=== PATIENT | male | born 1990 | race Caucasian/White ===

== ENCOUNTER → 2017-04-19 10:26 | Emergency (ER) | payer BC, OTHER ==
[2017-04-19 11:36] LABS: Hematocrit 44 % (42-52); Hemoglobin 15.4 g/dl (14.0-18.0); Mean Corpuscular HGB Conc 35 g/dl (31-36); Mean Corpuscular Hemoglobin 30 pg (27-31); Mean Corpuscular Volume 86 fL (80-94); Mean Platelet Volume 8 um3 (7.4-10.4); Red Blood Count 5.13 10^6/ul (4.0-5.4); Red Cell Distribution Width 13 % (10.5-15); White Blood Count 5.2 10^3/ul (3.5-10.8)
--- NOTE | 2017-04-19 11:49 | RAD ---
HISTORY: Right calf cellulitis, right lower extremity swelling COMPARISONS: None relevant TECHNIQUE: Multiple transverse and longitudinal ultrasound images were obtained of the right lower extremity from the level of the common femoral vein inferiorly through to the infrapopliteal veins using grayscale, color Doppler, and spectral Doppler imaging with and without compression and with augmentation. Comparison images were obtained of the contralateral common femoral vein. FINDINGS: VEINS: The venous system of the right lower extremity is compressible throughout its course, with normal flow on color Doppler imaging and normal response to augmentation on spectral Doppler imaging. SOFT TISSUES: Unremarkable. OTHER FINDINGS: None. IMPRESSION: NO RIGHT LOWER EXTREMITY DEEP VEIN THROMBOSIS
[2017-04-19 11:51] LABS: Albumin 4.1 g/dL (3.2-5.2); BUN/Creatinine Ratio 20.6 (8-20); C Reactive Protein 2.08 mg/L (< 5.00); Calcium 9.1 mg/dL (8.6-10.3); EGFR African American 179.9 (>60); EGFR Non-African American 139.9 (>60); Globulin 2.8 g/dL (2-4); Potassium 3.9 mmol/L (3.5-5.0); Total Bilirubin 0.4 mg/dL (0.2-1.0); Total Protein 6.9 g/dL (6.4-8.9)
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
[2017-04-19 12:36] VITALS: BP 156/69
== END | disposition home or self-care (01) ==
LOC: ED 10:26
DX: L03.115 Cellulitis of right lower limb (principal); R60.0 Localized edema
CPT/HCPCS: 36415; 80053; 83605; 83880; 85025; 85610; 85730; 86140; 99282

== ENCOUNTER 2018-08-25 08:12 | Emergency (ER) | payer OTHER ==
[2018-08-25 08:45] VITALS: BP 138/82
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
== END 2018-08-25 09:30 | disposition home or self-care (01) ==
LOC: UCCORT 08:12
DX: S70.01XA Contusion of right hip, initial encounter (principal); V59.3XXA Occupant (driver) (passenger) of pick-up truck or van injured in unspecified nontraffic accident, initial encounter; Y92.410 Unspecified street and highway as the place of occurrence of the external cause; G47.30 Sleep apnea, unspecified; F17.290 Nicotine dependence, other tobacco product, uncomplicated; I10 Essential (primary) hypertension
CPT/HCPCS: 99212; G0463

== ENCOUNTER 2018-11-24 18:29 | Emergency (ER) | payer SELFPAY ==
[2018-11-24 19:05] VITALS: BP 160/77
[2018-11-24] MEDS ORDERED: Tetracaine 0.5% OPTH.SOL 4 ML* 1 DROP BTL BOTH EYES ONE (19:12)
[2018-11-24] MEDS ORDERED: Fluorescein Sodium TOPICAL* 1 MG TEST STRIP OPHTHALMIC ONE (19:12)
--- NOTE | 2018-11-24 19:32 | UC ---
General HPI - HPI Summary HPI Summary: REDNESS AND IRRITATION TO BOTH EYES SINCE THIS AFTERNOON WITH YELLOW DRAINAGE. THE DRAINAGE IS MAKING HIS VISION BLURRY. IT BEGAN AFTER WORKING IN [employer]. NO CONTACT USE OR CORRECTIVE GLASSES. HE HAS TRIED FLUSHING HIS EYES, RUBBING HIS EYES AND APPLYING VISINE ALL WITH LITTLE RELIEF. PT ALSO FLUSHED EACH EYE WITH A FRIENDS LEFT OVER VIGAMOX. NO URI, BURNETT OR FEVER. - History of Current Complaint Chief Complaint: UCEye Stated Complaint: VISION ISSUE Time Seen by Provider: 11/24/18 19:07 Hx Obtained From: Patient Timing: Constant Pain Intensity: 0 - Allergy/Home Medications Allergies/Adverse Reactions: Allergies Allergy/AdvReac Type Severity Reaction Status Date / Time No Known Allergies Allergy Verified 11/24/18 18:49 Home Medications: Home Medications Bp Med 5 mg PO DAILY 11/24/18 [History] Diet Med 1 dose PO SEE INSTRUCTIONS 11/24/18 [History] Protein Supplement [Procel] 1 each PO DAILY 11/24/18 [History Confirmed 11/24/18 ] hydroCHLOROthiazide [Hydrochlorothiazide] 12.5 mg PO DAILY 11/24/18 [History Confirmed 11/24/18] PMH/Surg Hx/FS Hx/Imm Hx Cardiovascular History: Hypertension - Surgical History Surgical History: Yes Surgery Procedure, Year, and Place: tonsillectomy. b/l carpal tunnel - Family History Known Family History: Positive: Hypertension Negative: Cardiac Disease, Diabetes - Social History Occupation: Employed Full-time Alcohol Use: Weekly Alcohol Amount: "couple times a week ... ten [drinks]" total Substance Use Type: None Smoking Status (MU): Light Every Day Tobacco Smoker Type: Smokeless Tobacco Amount Used/How Often: 1 1/2 cans per day Length of Time of Smoking/Using Tobacco: Since Age 15 Have You Smoked in the Last Year: Yes Household Exposure Type: Cigarettes Review of Systems All Other Systems Reviewed And Are Negative: Yes Eyes: Positive: Blurred Vision - FROM DRAINAGE, Drainage, Eye Redness. Negative : Diplopia, Photophobia Physical Exam Triage Information Reviewed: Yes Appearance: Well-Appearing Vital Signs: Initial Vital Signs Temp 99.5 F 11/24/18 18:57 Pulse 94 11/24/18 18:57 Resp 28 11/24/18 18:57 BP 160/77 11/24/18 18:57 Pulse Ox 99 11/24/18 18:57 Vital Signs Reviewed: Yes Eyes: Positive: Other: - uncorrected vision od/os 20/30, ou 20/25. No auricular adenoapthy. No periorbital edema or cellulitis. PERRL, EOMI, AC's clear. Conjunctiva injected x2 and yellow exudates in each eye. Lids everted and no FB' s. Tetracaine drop OU. Stained x 2 and no uptake. Both eyes flushed with sterile NaCl. pt notes vision clear after exudates flushed from eyes. ENT: Positive: Pharynx normal, TMs normal. Negative: Nasal congestion, Nasal drainage Neck: Positive: Supple Respiratory: Positive: Normal breath sounds Cardiovascular: Positive: RRR Musculoskeletal: Positive: ROM Intact Neurological: Positive: Alert Psychological: Positive: Age Appropriate Behavior Skin Exam: Normal, Other Skin: Negative: Rashes Course/Dx - Differential Dx - Multi-Symptom Differential Diagnoses: Other - no concern for orbital/periorbital cellulitis. no fb's found. no uptake of stain. will have pt stop all prior tx's which i think may have collectively irritated the eyes more. both eyes have exudates thus i will tx him with polytrim. he is to f/u pcp in 5 days for a recheck or Dr Kennedy if not improving by Tuesday. - Diagnoses Provider Diagnosis: Conjunctivitis Discharge - Sign-Out/Discharge Documenting (check all that apply): Patient Departure All imaging exams completed and their final reports reviewed: No Studies - Discharge Plan Condition: Stable Disposition: HOME Prescriptions: Polymyx/Trimethoprim OPTH* [Polytrim OPHTH*] 1 drop BOTH EYES Q3H #1 btl Patient Education Materials: Conjunctivitis (ED) Referrals: Kaden Colunga [Primary Care Provider] - 5 Days Gabriela Kennedy MD [Medical Doctor] - Additional Instructions: FOLLOW UP WITH DR KENNEDY-OPTHAMOLOGY IF NOT IMPROVING BY TUESDAY. USE THE EYE DROPS WHILE AWAKE. STOP ALL OTHER EYE DROPS. - Billing Disposition and Condition Condition: STABLE Disposition: Home
== END 2018-11-24 19:38 | disposition home or self-care (01) ==
LOC: UCCORT 18:29
DX: H10.9 Unspecified conjunctivitis (principal); I10 Essential (primary) hypertension; F17.290 Nicotine dependence, other tobacco product, uncomplicated
CPT/HCPCS: 99212; A9270-GY; G0463

== ENCOUNTER 2023-03-16 09:23 | Inpatient (IN) ==
[~2023-03-16 09:23] MED LIST: Acetaminophen IV 1 GM/100ML 1,000 MG/100 ML BAG IV ONE; Buffered Lidocaine 1% SYRIN 1 ml INTRADERM ONE; Dexamethasone IV 4 MG/ML VIAL 1 ml VIAL ONE; Lactated Ringers 1000 ml BAG 1,000 ML IV SCH; Lidocaine 2% PF 5 ML VIAL ONE; Midazolam 5 mg/5 ml VIAL 1 mg/ml 5 ml VIAL (5 mg) ONE; Naloxone 0.4 mg VIAL 0.4 mg/ml 1 ml VIAL IV PRN; Ondansetron 4 mg VIAL 2 MG/ML 2 ml VIAL IV PRN; Ondansetron 4 mg VIAL 2 MG/ML 2 ml VIAL ONE; Propofol 10 MG/ML 20 ML BTL ONE; Rocuronium 50 mg VIAL 10 mg/ml 5 ml VIAL (50 mg) ONE; Sevoflurane BOTTLE ONE; fentaNYL 100 mcg/2 ml 50 MCG/ML VIAL IV PRN; fentaNYL 250 mcg/5 ml 50 MCG/ML 5 ml VIAL (250 MCG) ONE
[2023-03-16] MEDS ORDERED: ceFAZolin 2 GM in NS PREMIX 2 GM/100 ML BAG IVPB ONE (09:44)
[2023-03-16] MEDS ORDERED: Buffered Lidocaine 1% SYRIN 1 ml ONE (09:44)
[2023-03-16] MEDS ORDERED: Heparin 5000 UNITS/ML 1 mL VIAL ONE (09:44)
[2023-03-16] MEDS ORDERED: ceFAZolin 1 GM in Dextrose 1 GM/50 ML BAG ONE (09:44)
[2023-03-16] MEDS ORDERED: Scopolamine 1 mg/72hr PATCH ONE (09:44)
[2023-03-16 10:23] LABS: Rapid COVID-19 Molecular Undetected (Undetected)
[2023-03-16] MEDS ORDERED: Bupivacaine 0.25% EPI 200,000 30 ML SDV ONE (10:42)
[2023-03-16] MEDS ORDERED: Glycopyrrolate IV 0.2 MG/ML 1 ML VIAL ONE (11:35)
[2023-03-16] MEDS ORDERED: fentaNYL 250 mcg/5 ml 50 MCG/ML 5 ml VIAL (250 MCG) ONE (11:42)
[2023-03-16] MEDS ORDERED: HYDROmorphone 0.5 MG/0.5 ML SYRINGE ONE ×2 (12:15→12:27)
[2023-03-16] MEDS ORDERED: Sterile Water for Inj 10 ML ONE (12:37)
[2023-03-16] MEDS ORDERED: Metoprolol Tartrate 5 mg VIAL 5 ml VIAL (1 mg/ml) ONE (12:38)
[2023-03-16] MEDS ORDERED: hydrALAZINE 20 mg/ml 1 ML Vial IV ONE (12:38)
[2023-03-16] MEDS ORDERED: HYDROmorphone 1 MG/1 ML SYRINGE IV SLOW PU PRN (14:13)
[2023-03-16] MEDS ORDERED: HYDROmorphone 0.5 MG/0.5 ML SYRINGE IV SLOW PU PRN (14:13)
[2023-03-16] MEDS: Ondansetron 4 mg VIAL 2 MG/ML 2 ml VIAL IV PRN (17:19)
[2023-03-16] MEDS: Lactated Ringers 1000 ml BAG 1,000 ML IV SCH (17:36)
[2023-03-16] MEDS ORDERED: Metoclopramide 5 MG/ML VIAL (10 mg) IV ONE (21:00)
[2023-03-16] MEDS: Famotidine IV 10 MG/ML 2 ml VIAL (20 mg) IV SLOW PU SCH (21:59)
[2023-03-16] MEDS: Acetaminophen IV 1 GM/100ML 1,000 MG/100 ML BAG IV PRN (22:06)
[2023-03-16] MEDS: Heparin 5000 UNITS/ML 1 mL VIAL SUBCUT SCH (22:09)
[2023-03-17] MEDS: Lactated Ringers 1000 ml BAG 1,000 ML IV SCH (01:45)
[2023-03-17] MEDS: Ondansetron 4 mg VIAL 2 MG/ML 2 ml VIAL IV PRN ×2 (03:17→12:23)
[2023-03-17] MEDS: Acetaminophen IV 1 GM/100ML 1,000 MG/100 ML BAG IV PRN (06:05)
[2023-03-17] MEDS: Heparin 5000 UNITS/ML 1 mL VIAL SUBCUT SCH ×2 (06:05→14:02)
[2023-03-17] MEDS: Famotidine IV 10 MG/ML 2 ml VIAL (20 mg) IV SLOW PU SCH ×2 (06:30→09:43)
[2023-03-17] MEDS ORDERED: Metoclopramide 5 MG/ML VIAL (10 mg) IV SLOW PU ONE (07:00)
[2023-03-17] MEDS ORDERED: HYDROcodone/ACET. 7.5/325 LIQ 15 ML UDC PO PRN (10:09)
[2023-03-17 14:03] VITALS: BP 140/72
[2023-03-17] MEDS ORDERED: D5W 1/2 NS KCl 20 meq 1000 ml 1,000 ML IV SCH (15:00)
== END 2023-03-17 15:15 | disposition home or self-care (01) | DRG 403 ==
LOC: AA 09:23 → SSU 16:26
PROVIDERS: ADMIT Surgery; ATTEND Surgery